=== PATIENT | female | born 1965 | race Caucasian/White ===

== ENCOUNTER → 2016-10-30 | Outpatient (CLI) | payer OTHER ==
[~2016-10-30] MED LIST: FLUT1INH7 INH; MONT10TA2 PO; OMEP20CA5 PO; RANI150 PO
--- NOTE | 2016-10-30 17:43 | MG ---
cc: KAYY GRAVES M.D. Lab No: Date: 10/30/2016 Age: Sex: F Race: DATE OF 1965, 51 years old. EEG NUMBER [id number] REFERRING PHYSICIAN Outpatient referred by Dr. Prabhakar. Awake, drowsy asleep study. Hyperventilation and photic stimulation. Last meal yesterday at 07:00 p.m. Caffeine one cup coffee in the morning. Pain level mild headache. A 51-year-old woman who had an episode of unresponsiveness and twitching of the right arm. She has a history hyperlipidemia, not on any medicine. Dizziness, syncope. MEDICATIONS She is on: 1. Breo. 2. . 3. Omeprazole. 4. Raniditine. 5. Montelukast. 6. Clindamycin. The Clindamycin was completed yesterday. DESCRIPTION OF RECORD She has a normal alpha rhythm of 10 Hz, 20-40 microvolts, symmetrical background. A little bit of eye movement artifact causing some myogenic findings. Photic stimulation did elicit a normal posterior driving response. EKG looks to be possible sinus rhythm, it is difficult to assess on this one lead. No epileptic activity noted. Hyperventilation started towards the middle portion of the recording, excellent hypoventilatory effort. There are no findings to suggest any seizure-like activity. IMPRESSION Overall normal appearing EEG without any epileptiform features in this one recording. Clinical correlation. MD KAITLIN Perkins/KRISTEN /2:01 PM /5:34 PM
== END ==
LOC: HEEG 06:07
PROVIDERS: ATTEND Psychiatry & Neurology Neurology
DX: R56.9 Unspecified convulsions (principal)
CPT/HCPCS: 95819

== ENCOUNTER 2017-10-24 06:08 | Day surgery (SDC) | payer OTHER ==
[~2017-10-24] VITALS: Ht 158.8 cm; Wt 86.4 kg
[2017-10-24 07:45] VITALS: BP 116/79; PULSE 60; RESP 16; TEMP 98.7; O2SAT 95
[2017-10-24] MEDS ORDERED: CYAN1000P IM (07:45)
[2017-10-24] MEDS ORDERED: AZEL1SPR2 EACH NARE (07:45)
[2017-10-24] MEDS ORDERED: OMEP20TA93 PO (07:45)
[2017-10-24] MEDS ORDERED: FLUT1INH INH (07:45)
[2017-10-24] MEDS ORDERED: SERT-129 PO (07:45)
[2017-10-24] MEDS ORDERED: ROPI0.5T PO (07:45)
[2017-10-24] MEDS ORDERED: VITA1000 PO (07:45)
[2017-10-24] MEDS ORDERED: ASPI-516 CHEW (07:45)
[2017-10-24] MEDS ORDERED: ATOR10TA15 PO (07:45)
[2017-10-24 07:57] LABS: AUTOMATED NEUTROPHIL # 3.1 TH/MM3 (1.8-7.7); BASOPHIL % 0.2 % (0.0-2.0); EOSINOPHIL % 0.1 % (0.0-4.0); HEMOGLOBIN 12.7 GM/DL (11.6-15.3); LYMPH % 28.3 % (9.0-44.0); LYMPHOCYTE # 1.4 TH/MM3 (1.0-4.8); MEAN CELL VOLUME 85.7 FL (80.0-100.0); MEAN CORPUSCULAR HEMOGLOBIN 28.6 PG (27.0-34.0); MEAN CORPUSCULAR HGB CONC 33.4 % (32.0-36.0); MEAN PLATELET VOLUME 8.6 FL (7.0-11.0); MONO % 7.4 % (0.0-8.0); MONOCYTE # 0.4 TH/MM3 (0-0.9); PLATELET COUNT 184 TH/MM3 (150-450); RED BLOOD COUNT 4.44 MIL/MM3 (4.00-5.30); RED CELL DISTRIBUTION WIDTH 14.3 % (11.6-17.2); WHITE BLOOD COUNT 4.9 TH/MM3 (4.0-11.0)
[2017-10-24] MEDS ORDERED: SODIUM CHLOR 0.9% 1000 ML INJ 1,000 ML IV SCH (08:00)
[2017-10-24 08:05] LABS: PROTHROMBIN TIME - PATIENT 10.2 SEC (9.8-11.6)
[2017-10-24 08:14] LABS: BICARBONATE 27.6 MEQ/L (21.0-32.0); CREATININE 0.82 MG/DL (0.50-1.00)
[2017-10-24 09:15] VITALS: BP 144/86; PULSE 58; RESP 16; TEMP 98.5; O2SAT 96
[2017-10-24 10:05] LABS: SUPERNATE COLOR TUBE #1 CLEAR (CLEAR)
[2017-10-24 10:06] LABS: CSF LYMPHOCYTES 0 %; CSF NEUTROPHILS 0 %; RBC TUBE #4 4 /MM3; WBC TUBE #4 0 /MM3 (0-10)
[2017-10-24 10:15] LABS: TOTAL PROTEIN,CSF 32.1 MG/DL (15.0-45.0)
[2017-10-24 11:00] VITALS: BP 132/78; PULSE 58; RESP 16; O2SAT 96
--- NOTE | 2017-10-24 14:39 | RADRPT ---
EXAM DATE: 10/24/2017 9:32 AM EDT AGE/SEX: 52 years / Female INDICATIONS: Syncope amnesia.Lumbar puncture with opening pressures. CLINICAL DATA: This is the patient's initial encounter. Patient reports that signs and symptoms have been present for 1 month and indicates a pain score of 0/10. MEDICAL/SURGICAL HISTORY: Asthma. Multiple sclerosis. HLD, restless leg syndrome,vertebrobasli lar artery syndrome Hysterectomy. tubal ligation COMPARISON: No prior exams available for comparison. FLUORO TIME (min): 0.9 IMAGE SERIES: 1 ACCESS SITE: L2-3 LUMBAR PUNCTURE TIME: 0901 hours OPENING PRESSURE: 18 cm of water CLOSING PRESSURE: not requested FLUID: Total volume of 15 cc of clear fluid was removed. Fluid was sent to lab for ordered studies. . . PROCEDURE: 1. Fluoroscopic guided lumbar puncture. 2. Recording of opening pressure. The risks, benefits and alternatives to the procedure were explained and verbal and written consent w as obtained. The site was prepped in sterile fashion. Full sterile technique was used, including ca p, mask, sterile gloves and gown and a large sterile sheet. Hand hygiene and 2% chlorhexidine and/or betadine/alcohol prep was utilized per protocol for cutaneous antisepsis. The skin and subcutaneous tissues were infiltrated with local anesthetic solution. With fluoroscopic guidance the lumbar thecal sac was punctured at the above level described above and the opening pressure was recorded. The above described fluid was removed without difficulty. The patient tolerated the procedure well and there were no complications. CONCLUSION: Uncomplicated fluoroscopically guided lumbar puncture with pressures as above. Electronically signed by: Carlos A Flores MD 10/24/2017 1:57 PM EDT
== END 2017-10-24 11:15 | disposition home or self-care (01) ==
LOC: HROP 06:08 → HRIP 06:21 → HROP 11:15
PROVIDERS: ATTEND Specialist
DX: R55 Syncope and collapse (principal); R41.3 Other amnesia; J45.909 Unspecified asthma, uncomplicated; G35 Multiple sclerosis; Z90.710 Acquired absence of both cervix and uterus; G25.81 Restless legs syndrome; E78.5 Hyperlipidemia, unspecified; Z01.818 Encounter for other preprocedural examination
CPT/HCPCS: 62270; 77003; 80048; 82945; 84157; 85025; 85610; 85730; 86592; 89051

== ENCOUNTER → 2017-10-27 | Day surgery (SDC) | payer OTHER ==
[~2017-10-27] MED LIST changes: +ASPI-516 CHEW; +ATOR10TA15 PO; +AZEL1SPR2 EACH NARE; +CHLORHEXIDINE GLUCONATE 2 % 1 PACK (2 CLOTHS) TOPICAL PRN; +CYAN1000P IM; +FLUT1INH INH; -FLUT1INH7 INH; +LACTATED RINGER'S 1000 ML IV PRN; +METOPROLOL TARTRATE 25 MG TAB PO PRN; -MONT10TA2 PO; -OMEP20CA5 PO; +OMEP20TA93 PO; +POVIDONE IODINE 5% (ANTISEPSIS KIT) 4 APPLICATIONS EACH NARE PRN; -RANI150 PO; +ROPI0.5T PO; +SERT-129 PO; +SODIUM CHLORID 0.9% 500 ML IV PRN; +VITA1000 PO
[2017-10-27 15:02] VITALS: BP 139/84; PULSE 70; RESP 18; TEMP 98.4; O2SAT 98
== END | disposition home or self-care (01) ==
LOC: HSDC 10:40
PROVIDERS: ATTEND Anesthesiology
DX: R51 Headache (principal)
CPT/HCPCS: 62273